=== PATIENT | male | born 1965 | race Asian ===

== ENCOUNTER 2018-06-02 13:34 | Inpatient (IN) | payer SELFPAY ==
[~2018-06-02] VITALS: Ht 175.3 cm; Wt 82.6 kg
[2018-06-02] MEDS ORDERED: LORAZEPAM 2MG/ML CPJ IV ONE (14:00)
[2018-06-02] MEDS ORDERED: FOLIC ACID 1 MG, THIAMINE HCL 100 MG, MVI, ADULT NO.1 10 ML in DEXTROSE 5% WATER 1,000 ML IV ONE ×4 (14:00)
[2018-06-02 14:24] LABS: BASOPHILS % 0.3 % (0.0-2.0); EOSINOPHILS % 0.2 % (0.0-5.0); HEMATOCRIT. 37.8 % (42.0-52.0); HEMOGLOBIN. 12.8 g/dL (14.0-18.0); LYMPHOCYTES % 9.8 % (20.0-50.0); MEAN CORPUSCULAR HEMOGLOBIN 31.7 pg (28.0-32.0); MEAN PLATELET VOLUME 9.3 fl (7.4-10.4); MONOCYTES % 8.6 % (2.0-8.0); NEUTROPHILS % 81.1 % (40.0-76.0); PLATELET 92 x1000/uL (130-400); RED BLOOD CELL COUNT 4.02 mill/uL (4.7-6.1); RED CELL DISTRIBUTION WIDTH 18.9 % (11.6-14.6)
[2018-06-02 14:32] LABS: CHLORIDE 102 mEq/L (98-107)
[2018-06-02 14:34] LABS: INR 1.1; PARTIAL THROMBOPLASTIN TIME 22.6 sec (23.4-31.0); PROTHROMBIN TIME 11.3 sec (9.6-11.0)
[2018-06-02 14:36] LABS: ETHANOL BLOOD < 10 mg/dL
[2018-06-02 14:40] LABS: CREATINE KINASE 237 IU/L (39-308); CREATINE KINASE MB FRACTION 3.1 ng/mL (0.5-3.6)
[2018-06-02] MEDS ORDERED: POTASSIUM CHLORIDE 20MEQ TABLET SR PO ONE (14:45)
[2018-06-02] MEDS ORDERED: MAGNESIUM 2 G PREMIX 50 ML IV ONE (14:45)
[2018-06-02] MEDS ORDERED: SODIUM CHLORIDE 0.9% 1000ML BAG (SEPSIS BOLUS) IV ONE (14:45)
[2018-06-02] MEDS ORDERED: PIPERACILLIN/TAZ 3.375G PREMIX 50 ML IV ONE (15:00)
[2018-06-02] MEDS ORDERED: ETOMIDATE 2MG/ML 10ML VIAL IV ONE (16:00)
[2018-06-02 19:21] LABS: CLARITY URINE CLEAR (CLEAR); COLOR URINE YELLOW (YELLOW); KETONES URINE NEGATIVE (NEGATIVE); LEUKOCYTE ESTERASE URINE NEGATIVE (NEGATIVE); NITRITE URINE NEGATIVE (NEGATIVE); OCCULT BLOOD URINE NEGATIVE (NEGATIVE); PROTEIN URINE TRACE (NEGATIVE)
[2018-06-02 20:00] LABS: *AMPHETAMINES SCREEN URINE NEGATIVE (NEGATIVE); *BARBITURATES SCREEN URINE NEGATIVE (NEGATIVE)
[2018-06-02 20:01] LABS: *BENZODIAZEPINES SCREEN URINE NEGATIVE (NEGATIVE); *COCAINE SCREEN URINE NEGATIVE (NEGATIVE); CANNABINOID URINE SCREEN NEGATIVE (NEGATIVE); METHADONE URINE SCREEN NEGATIVE (NEGATIVE); OPIATES URINE SCREEN NEGATIVE (NEGATIVE); PHENCYCLIDINE URINE SCREEN NEGATIVE (NEGATIVE)
[2018-06-02] MEDS ORDERED: CLONIDINE 0.1MG TABLET PO PRN (20:15)
[2018-06-02] MEDS ORDERED: DOCUSATE SODIUM 100MG CAPSULE PO PRN (20:15)
[2018-06-02] MEDS ORDERED: ONDANSETRON HCL 4MG/2ML INJ IV PRN (20:15)
[2018-06-02] MEDS ORDERED: MAGNESIUM/ALUMINUM HYDROXIDE/SIMETHICONE 30ML UDC PO PRN (20:15)
[2018-06-02] MEDS ORDERED: GUAIFENESIN 200MG/10ML SUGAR FREE UDC PO PRN (20:15)
[2018-06-02] MEDS ORDERED: LORAZEPAM 2MG/ML CPJ IV PRN (20:15)
[2018-06-02] MEDS ORDERED: DIPHENHYDRAMINE 50MG/ML VIAL IV PRN (20:15)
[2018-06-02] MEDS ORDERED: IPRATROPIUM/ALBUTEROL 0.5-3(2.5)MG/3ML NEB INH PRN (20:15)
[2018-06-02] MEDS ORDERED: ENOXAPARIN 40MG/0.4ML SYR SUBCUT SCH (20:15)
[2018-06-02 23:51] LABS: CREATINE KINASE 683 IU/L (39-308)
[2018-06-02 23:52] LABS: CREATINE KINASE MB FRACTION 16.2 ng/mL (0.5-3.6)
[2018-06-03] VITALS (11 sets, daily range): BP systolic 114–158; BP diastolic 23–89
[2018-06-03] MEDS ORDERED: HYDROMORPHONE HCL/PF 2MG/ML CPJ IV PRN (00:03)
[2018-06-03] MEDS ORDERED: HYDRALAZINE 20MG/ML VIAL IV PRN (01:37)
[2018-06-03] MEDS ORDERED: MVI, ADULT NO.1 10 ML, FOLIC ACID 1 MG, THIAMINE HCL 100 MG in SODIUM CHLORIDE 0.9% 1,0... IV SCH ×4 (02:00)
[2018-06-03] MEDS: SODIUM CHLORIDE 0.9% INJ 3ML FLUSH IVF SCH ×3 (06:11→21:53)
[2018-06-03 06:32] LABS: BASOPHILS % 0.4 % (0.0-2.0); EOSINOPHILS % 0.7 % (0.0-5.0); HEMATOCRIT. 38.7 % (42.0-52.0); HEMOGLOBIN. 13.3 g/dL (14.0-18.0); LYMPHOCYTES % 27.2 % (20.0-50.0); MEAN CORPUSCULAR HEMOGLOBIN 32.2 pg (28.0-32.0); MEAN CORPUSCULAR VOLUME 93.7 fL (80.0-94.0); MEAN PLATELET VOLUME 9.8 fl (7.4-10.4); MONOCYTES % 9.9 % (2.0-8.0); NEUTROPHILS % 61.8 % (40.0-76.0); PLATELET 105 x1000/uL (130-400); RED BLOOD CELL COUNT 4.12 mill/uL (4.7-6.1); RED CELL DISTRIBUTION WIDTH 18.8 % (11.6-14.6)
[2018-06-03 07:28] LABS: CHLORIDE 106 mEq/L (98-107)
[2018-06-03 07:52] LABS: CREATINE KINASE 739 IU/L (39-308)
[2018-06-03 07:55] LABS: T4 FREE 1.58 ng/dL (0.76-1.46)
[2018-06-03] MEDS: ENOXAPARIN 30MG/0.3ML SYR SUBCUT SCH ×2 (08:43→21:53)
[2018-06-03] MEDS: HYDROCODONE/ACETAMINOPHEN 5/325MG TABLET PO PRN (08:47)
[2018-06-03] MEDS ORDERED: NA PHOS,M-B/NA PHOS,DI-BA ENEMA 118ML PR PRN (09:00)
[2018-06-03 11:54] LABS: T4 FREE 1.52 ng/dL (0.76-1.46)
[2018-06-03 16:18] LABS: CREATINE KINASE 681 IU/L (39-308)
[2018-06-03 16:19] LABS: CREATINE KINASE MB FRACTION 5.6 ng/mL (0.5-3.6)
[2018-06-03] MEDS: DEXT 5%/0.45% NACL 1000ML 1,000 ML IV SCH (18:25)
[2018-06-03] MEDS ORDERED: POTASSIUM CHLORIDE 20MEQ TABLET SR PO NR (18:30)
[2018-06-03] MEDS ORDERED: MAGNESIUM 1 G PREMIX 100 ML IV NR (20:00)
[2018-06-03 23:40] LABS: CREATINE KINASE 750 IU/L (39-308)
[2018-06-03 23:41] LABS: CREATINE KINASE MB FRACTION 4.9 ng/mL (0.5-3.6)
[2018-06-04] VITALS (11 sets, daily range): BP systolic 94–154; BP diastolic 42–90
[2018-06-04] MEDS: SODIUM CHLORIDE 0.9% INJ 3ML FLUSH IVF SCH ×3 (06:23→21:36)
[2018-06-04] MEDS: DEXT 5%/0.45% NACL 1000ML 1,000 ML IV SCH ×2 (06:23→13:47)
[2018-06-04 06:49] LABS: CREATINE KINASE 741 IU/L (39-308)
[2018-06-04 06:51] LABS: CREATINE KINASE MB FRACTION 3.9 ng/mL (0.5-3.6)
[2018-06-04] MEDS: ACETAMINOPHEN 325MG TABLET PO PRN ×2 (07:07→19:28)
[2018-06-04] MEDS: ENOXAPARIN 30MG/0.3ML SYR SUBCUT SCH ×2 (07:57→21:33)
[2018-06-04] MEDS ORDERED: VANCOMYCIN HCL 500 MG/VIAL ONE (08:01)
[2018-06-04] MEDS ORDERED: BACITRACIN 15GM TUBE TOP ONE (08:01)
[2018-06-04] MEDS ORDERED: BUPIVACAINE HCL/EPINEPHRINE 0.5%/0.0005 30ML ONE (08:18)
[2018-06-04] MEDS ORDERED: ROCURONIUM BROMIDE 10MG/ML VIAL 5ML IV ONE (08:43)
[2018-06-04] MEDS ORDERED: FENTANYL CITRATE/PF 50MCG/ML 5ML VIAL ONE (08:43)
[2018-06-04] MEDS ORDERED: MIDAZOLAM HCL 2 MG/2 ML VIAL ONE (08:43)
[2018-06-04] MEDS ORDERED: PROPOFOL 200MG/20ML VIAL IV ONE (08:43)
[2018-06-04] MEDS ORDERED: SUCCINYLCHOLINE CHLORIDE 200MG/10ML IV ONE (09:27)
[2018-06-04] MEDS ORDERED: METOCLOPRAMIDE HCL 10MG/2ML VIAL ONE (09:28)
[2018-06-04] MEDS ORDERED: KETOROLAC 30MG/ML VIAL ONE (09:28)
[2018-06-04] MEDS ORDERED: ONDANSETRON HCL 4MG/2ML INJ ONE (09:28)
[2018-06-04] MEDS ORDERED: ONDANSETRON HCL 4MG/2ML INJ IV PRN (10:00)
[2018-06-04] MEDS ORDERED: MEPERIDINE HCL/PF 25MG/ML CPJ IV PRN (10:00)
[2018-06-04] MEDS ORDERED: HYDROMORPHONE HCL/PF 2MG/ML CPJ IV PRN (10:00)
[2018-06-04] MEDS ORDERED: MORPHINE SULFATE 4 MG/ML CPJ (NOT FOR IM USE) IV PRN (10:00)
[2018-06-04] MEDS: FENTANYL CITRATE/PF 50MCG/ML 2ML VIAL IV PRN ×3 (10:38→11:17)
[2018-06-04] MEDS: MULTIVITAMINS,THER W-MINERALS TABLET PO SCH (16:10)
[2018-06-04] MEDS: CEFAZOLIN 1000MG PREMIX 50 ML IV SCH (16:10)
[2018-06-04] MEDS: THIAMINE HCL 100MG TABLET PO SCH (16:10)
[2018-06-04] MEDS: FOLIC ACID 1MG TABLET PO SCH (16:10)
[2018-06-04] MEDS: HYDROCODONE/ACETAMINOPHEN 5/325MG TABLET PO PRN (18:37)
[2018-06-05] VITALS (10 sets, daily range): BP systolic 93–154; BP diastolic 52–89
[2018-06-05] MEDS: CEFAZOLIN 1000MG PREMIX 50 ML IV SCH (01:45)
[2018-06-05] MEDS: ACETAMINOPHEN 325MG TABLET PO PRN ×2 (02:47→18:12)
[2018-06-05] MEDS: DEXT 5%/0.45% NACL 1000ML 1,000 ML IV SCH ×2 (04:44→18:12)
[2018-06-05] MEDS: SODIUM CHLORIDE 0.9% INJ 3ML FLUSH IVF SCH ×3 (05:01→21:38)
[2018-06-05] MEDS: THIAMINE HCL 100MG TABLET PO SCH (08:38)
[2018-06-05] MEDS: ENOXAPARIN 30MG/0.3ML SYR SUBCUT SCH (08:38)
[2018-06-05] MEDS: MULTIVITAMINS,THER W-MINERALS TABLET PO SCH (08:38)
[2018-06-05] MEDS: FOLIC ACID 1MG TABLET PO SCH (08:42)
[2018-06-05] MEDS ORDERED: DEXTROSE 50% WATER 50ML SYRINGE IV PRN (12:30)
[2018-06-05] MEDS: INSULIN LISPRO 100 UNITS/ML SUBCUT SCH ×3 (13:00→21:35)
[2018-06-05] MEDS: BLOOD SUGAR DIAGNOSTIC STRIP TEST SCH ×3 (13:09→20:29)
[2018-06-05] MEDS: CHLORDIAZEPOXIDE 5 MG CAPSULE PO SCH ×2 (13:10→21:39)
[2018-06-05] MEDS: HYDROCODONE/ACETAMINOPHEN 5/325MG TABLET PO PRN (13:11)
[2018-06-06] VITALS (7 sets, daily range): BP systolic 108–152; BP diastolic 53–82
[2018-06-06] MEDS: CHLORDIAZEPOXIDE 5 MG CAPSULE PO SCH ×3 (06:01→21:18)
[2018-06-06] MEDS: SODIUM CHLORIDE 0.9% INJ 3ML FLUSH IVF SCH ×3 (06:02→21:18)
[2018-06-06 06:11] LABS: HEMATOCRIT. 34.2 % (42.0-52.0); HEMOGLOBIN. 11.3 g/dL (14.0-18.0); MEAN CORPUSCULAR HEMOGLOBIN 31.9 pg (28.0-32.0); MEAN CORPUSCULAR VOLUME 96.4 fL (80.0-94.0); MEAN PLATELET VOLUME 9.1 fl (7.4-10.4); PLATELET 162 x1000/uL (130-400); RED BLOOD CELL COUNT 3.54 mill/uL (4.7-6.1); RED CELL DISTRIBUTION WIDTH 18.7 % (11.6-14.6)
[2018-06-06] MEDS: BLOOD SUGAR DIAGNOSTIC STRIP TEST SCH ×5 (06:37→21:18)
[2018-06-06 06:47] LABS: CHLORIDE 104 mEq/L (98-107)
[2018-06-06] MEDS: INSULIN LISPRO 100 UNITS/ML SUBCUT SCH ×5 (08:00→21:00)
[2018-06-06] MEDS: DEXT 5%/0.45% NACL 1000ML 1,000 ML IV SCH ×2 (08:36→21:06)
[2018-06-06 09:46] LABS: PLATELET ESTIMATE NORMAL
[2018-06-06] MEDS: MULTIVITAMINS,THER W-MINERALS TABLET PO SCH (10:23)
[2018-06-06] MEDS: THIAMINE HCL 100MG TABLET PO SCH (10:23)
[2018-06-06] MEDS: FOLIC ACID 1MG TABLET PO SCH (10:23)
[2018-06-06] MEDS: ENOXAPARIN 40MG/0.4ML SYR SUBCUT SCH (10:24)
[2018-06-07] VITALS: BP 125/72
[2018-06-07 04:00] VITALS: BP 110/67
[2018-06-07 06:10] LABS: HEMOGLOBIN. 11.3 g/dL (14.0-18.0); MEAN CORPUSCULAR HEMOGLOBIN 32.6 pg (28.0-32.0); MEAN CORPUSCULAR VOLUME 95.4 fL (80.0-94.0); MEAN PLATELET VOLUME 8.7 fl (7.4-10.4); PLATELET 233 x1000/uL (130-400); RED BLOOD CELL COUNT 3.46 mill/uL (4.7-6.1); RED CELL DISTRIBUTION WIDTH 18.2 % (11.6-14.6)
[2018-06-07 06:11] LABS: CHLORIDE 104 mEq/L (98-107)
[2018-06-07] MEDS: CHLORDIAZEPOXIDE 5 MG CAPSULE PO SCH ×2 (06:28→13:27)
[2018-06-07] MEDS: SODIUM CHLORIDE 0.9% INJ 3ML FLUSH IVF SCH ×2 (06:28→13:27)
[2018-06-07] MEDS: BLOOD SUGAR DIAGNOSTIC STRIP TEST SCH ×2 (07:40→12:57)
[2018-06-07 08:00] VITALS: BP 114/64
[2018-06-07] MEDS: INSULIN LISPRO 100 UNITS/ML SUBCUT SCH ×2 (08:10→12:58)
[2018-06-07 09:43] LABS: PLATELET ESTIMATE NORMAL
[2018-06-07] MEDS: ENOXAPARIN 40MG/0.4ML SYR SUBCUT SCH (09:44)
[2018-06-07] MEDS: FOLIC ACID 1MG TABLET PO SCH (09:45)
[2018-06-07] MEDS: THIAMINE HCL 100MG TABLET PO SCH (09:45)
[2018-06-07] MEDS: MULTIVITAMINS,THER W-MINERALS TABLET PO SCH (09:45)
[2018-06-07] MEDS: DEXT 5%/0.45% NACL 1000ML 1,000 ML IV SCH (09:54)
[2018-06-07 12:07] VITALS: BP 116/66
[2018-06-07 12:50] VITALS: BP 116/66
== END 2018-06-07 15:00 | disposition home or self-care (01) | DRG 315 ==
LOC: ER 13:34 → EDBEDREQ 15:06 → EDBEDREQSVC 15:06 → 5EST 16:08 → EDBEDREQ 16:10 → ENRESERV 21:01 → 7WST 06-06 11:40
PROVIDERS: ADMIT Internal Medicine; ATTEND Internal Medicine
PROC: 0PSHXZZ Reposition Right Radius, External Approach (ICD-10-PCS; 2018-06-02)
PROC: 0PSKXZZ Reposition Right Ulna, External Approach (ICD-10-PCS; 2018-06-02)
PROC: 0PSH04Z Reposition Right Radius with Internal Fixation Device, Open Approach (ICD-10-PCS; principal; 2018-06-04)
PROC: 0PSK04Z Reposition Right Ulna with Internal Fixation Device, Open Approach (ICD-10-PCS; 2018-06-04)
DX: S52.601A Unspecified fracture of lower end of right ulna, initial encounter for closed fracture (principal); G93.41 Metabolic encephalopathy; R65.10 Systemic inflammatory response syndrome (SIRS) of non-infectious origin without acute organ dysfunction; S52.501A Unspecified fracture of the lower end of right radius, initial encounter for closed fracture; T79.6XXA Traumatic ischemia of muscle, initial encounter; E11.9 Type 2 diabetes mellitus without complications; E78.00 Pure hypercholesterolemia, unspecified; E87.6 Hypokalemia; R74.0 Nonspecific elevation of levels of transaminase and lactic acid dehydrogenase [LDH]; J98.11 Atelectasis; W18.39XA Other fall on same level, initial encounter; Y93.89 Activity, other specified; Y92.89 Other specified places as the place of occurrence of the external cause; Y99.8 Other external cause status
CPT/HCPCS: 36415; 71045; 73090; 73130; 76000; 76705; 80048; 80061; 80305; 80307; 80320; 80329; 82550; 82553; 82962; 83036; 83605; 83735; 83880; 84439; 84443; 84484; 85379; 93005; 93306; 93308; 96365; 96366; 96375; 97161; 97166; 99291; A4565; C1713; J0171; J0330; J0690; J1170; J1650; J1815; J1885; J2060; J2250; J2405; J2543; J2704; J2765; J3010; J3370; J3411; J3475; J3490; J7030; J7040; J7070; G0480